=== PATIENT | male | born 1965 | race Caucasian/White ===

== ENCOUNTER 2024-02-01 09:54 | Outpatient (OUT) | payer BC, SELFPAY ==
--- NOTE | 2024-02-01 10:05 | XR_ITS ---
[address] [address] Patient Name: OPHELIA PARKS MRN: [id number] date: 1965 Sex: M Assigned Patient Location: [facility] Current Patient Location: Accession/Order Number: [id number] Exam Date: 02/01/2024 10:25 Report Date: 02/02/2024 12:56 At the request of: JILLIAN RODRIGUES Procedure: XR knee BAM 3V EXAMINATION: XR knee BAM 3V HISTORY: Osteoarthritis Of Knee M17.9 COMPARISON: No relevant comparison available. FINDINGS: RIGHT FINDINGS: BONES: Small periarticular degenerative osteophytes without significant joint space narrowing involving all 3 compartments. SOFT TISSUES: No visible soft tissue swelling. OTHER: Negative. LEFT FINDINGS: BONES: Small periarticular degenerative osteophytes without significant joint space narrowing involving all 3 compartments. SOFT TISSUES: No visible soft tissue swelling. OTHER: Negative. XR/XR knee BAM 3V IMPRESSION: RIGHT CONCLUSION: Mild degenerative joint disease. No acute abnormality. LEFT CONCLUSION: Mild degenerative joint disease. No acute abnormality. Electronically authenticated by: PAPI CHAPMAN Date: 02/02/2024 12:56
== END 2024-02-01 09:55 | disposition home or self-care (01) ==
PROVIDERS: PCP Family Medicine; Visit Provider Family Medicine
DX: M17.0 Bilateral primary osteoarthritis of knee (principal)
CPT/HCPCS: 73562

== ENCOUNTER 2024-06-29 09:18 | Outpatient (OUT) | payer BC, SELFPAY ==
--- OUTSIDE RECORDS SUMMARY | 2024-06-29 09:43 | XMS_ITS | CCD ---
Author Organization [facility] Care Team Providers Care Wicker Molded Candles Name Role Phone RAVI Eastman, DR WALSH Admitting Unavailable RAVI Eastman, DR WALSH Attending Unavailable RAVI Eastman, DR WALSH Primary Care Unavailable RAVI Eastman, DR WALSH Consulting Unavailable PAPI RAE Attending Unavailable PAPI RAE Referring Unavailable PAPI RAE Attending Unavailable Problems Problem Classification Problem Date Documented Da te Episodic/Chronic Other screening for suspected conditions (not mental disorders or infectious disease) (1 source) Encounter for screening for malignant neoplasm of prostate; Translations: [ENC SCREEN MALIG NEOPLASM PROSTATE] Onset: 11-21-2022 Episodic Results Test Name Value Interpretation Reference Range Facil ity CBC AUTO DIFFon 11-18-2022 BASO # 0.1 103/ul Normal 0.0-0.1 [facility] Comment on above: Performed By: #### C BC #### [facility] [address] [place] [address] Dr. Jimi Bah Basophils/100 WBC (Bld) 0.8 % Normal 0.2-2.0 [facility] Comment on above: Performed By: #### C BC #### [facility] [address] [address] [address] Jimi Bah EO # 0.4 103/ul Normal 0.0-0.7 [facility] Comment on above: Performed By: #### C BC #### [facility] [address] [address] [address] Jimi Bah Eosinophils/100 WBC (Bld) 6.4 % Normal 0.9-7.0 [facility] Comment on above: Performed By: #### C BC #### [facility] [address] [address] [address] Jimi Bah Erythrocyte distribution width (RBC) [Ratio] 12.5 % Normal 11.0-15.0 [facility] Comment on above: Performed By: #### C BC #### [facility] [address] [place] [address] Dr. Jimi Bah Hematocrit (Bld) [Volume fraction] 43.0 % Normal 42.0-54.0 [facility] Comment on above: Performed By: #### C BC #### [facility] [address] [place] [address] Dr. Jimi Bah Hemoglobin (Bld) [Mass/Vol] 14.7 g/dL Normal 14.0-18.0 [facility] Comment on above: Performed By: #### C BC #### [facility] [address] [place] [address] Dr. Jimi Bah IG # 0.03 10e3/ul Normal 0.00-0.03 [facility] Comment on above: Performed By: #### C BC #### [facility] [address] [place] [address] Dr. Jimi Bah IG % 0.5 % Normal 0.0-0.5 [facility] Comment on above: Performed By: #### C BC #### [facility] [address] [place] [address] Dr. Jimi Bah LYMPH # 1.8 103/ul Normal 1.2-3.8 [facility] Comment on above: Performed By: #### C BC #### [facility] [address] [place] [address] Dr. Jimi Bah Lymphocytes/100 WBC (Bld) 30.0 % Normal 20.5-60.0 [facility] Comment on above: Performed By: #### C BC #### [facility] [address] [place] [address] Dr. Jimi Bah MANUAL DIFF REQ NO Normal [facility] Comment on above: Performed By: #### C BC #### [facility] [address] [place] [address] Dr. Jimi Bah MCH (RBC) [Entitic mass] 30.1 pg Normal 25.9-34.0 [facility] Comment on above: Performed By: #### C BC #### [facility] [address] [place] [address] Dr. Jimi Bah MCHC (RBC) [Mass/Vol] 34.2 g/dL Normal 29.9-35.2 [facility] Comment on above: Performed By: #### C BC #### [facility] [address] [place] [address] Dr. Jimi Bah MCV (RBC) [Entitic vol] 88.1 fL Normal 80.0-94.0 [facility] Comment on above: Performed By: #### C BC #### [facility] [address] [place] [address] Dr. Jimi Bah MONO # 0.6 103/ul Normal 0.3-0.8 [facility] Comment on above: Performed By: #### C BC #### [facility] [address] [place] [address] Dr. Jimi Bah Monocytes/100 WBC (Bld) 10.2 % Normal 1.7-12.0 [facility] Comment on above: Performed By: #### C BC #### [facility] [address] [place] [address] Dr. Jimi Bah NEUT # 3.1 103/ul Normal 1.4-6.5 [facility] Comment on above: Performed By: #### C BC #### [facility] [address] [place] [address] Dr. Jimi Bah Neutrophils/100 WBC (Bld) 52.1 % Normal 43.0-75.0 [facility] Comment on above: Performed By: #### C BC #### [facility] [address] [place] [address] Dr. Jimi Bah Platelet mean volume (Bld) [Entitic vol] 9.6 fL Normal 9.5-13.5 [facility] Comment on above: Performed By: #### C BC #### [facility] [address] [place] [address] Dr. Jimi Bah PLT 268 103/ul Normal 150-450 [facility] Comment on above: Performed By: #### C BC #### [facility] [address] [address] [address] Jimi Bah RBC 4.88 106/ul Normal 4.70-6.10 [facility] Comment on above: Performed By: #### C BC #### [facility] [address] [address] [address] Jimi Bah WBC 6.0 103/ul Normal 4.0-11.0 [facility] Comment on above: Performed By: #### C BC #### [facility] [address] [place] [address] Dr. Jimi Bah GLYCOHEMOGLOBIN A1Con 2022 ADA RECOMMENDATION SEE BELOW Normal [facility] Comment on above: Result Comment: ADA RECOMMENDED LIMIT 4.0 - 6.0 ADA THERAPEUTIC TARGET < 7.0 ACTION SUGGESTED > 7.0 Performed By: #### A 1C #### [facility] [address] [place] [address] Dr. Jimi Bah Glucose [Mass/Vol] 114 mg/dL Normal [facility] Comment on above: Performed By: #### A 1C #### [facility] [address] [place] [address] Dr. Jimi Bah HbA1c (Bld) [Mass fraction] 5.6 % Normal 4.5-6.2 [facility] Comment on above: Performed By: #### A 1C #### [facility] [address] [place] [address] Dr. Jimi Bah LIPID PROFILEon 11-18-2022 CHOL-HDL RATIO NORM SEE BELOW Normal [facility] Comment on above: Result Comment: 3.3 - 4.4 LOW RISK 4.4 - 7.1 AVERAGE RISK 7.1 - 11.0 MODERATE RISK >11.0 HIGH RISK Performed By: #### U MILTON, CMP, LIPID #### [facility] [address] [place] [address] Dr. Jimi Bah Cholesterol [Mass/Vol] 196 mg/dL Normal <=200 [facility] Comment on above: Performed By: #### U MILTON, CMP, LIPID #### [facility] [address] [address] [address] Jimi Bah Cholesterol in HDL [Mass/Vol] 48 mg/dL Normal 40-60 [facility] Comment on above: Performed By: #### U MILTON, CMP, LIPID #### [facility] [address] [address] [address] Jimi Bah Cholesterol in LDL [Mass/Vol] 118.0 mg/dL Normal [facility] Comment on above: Performed By: #### U MILTON, CMP, LIPID #### [facility] [address] [address] [address] Jimi Bah Cholesterol.total/Cho lesterol in HDL [Mass ratio] 4.1 {ratio} Normal [facility] Comment on above: Performed By: #### U MILTON, CMP, LIPID #### [facility] [address] [address] [address] Jimi Bah HDL NORMAL > or = 60 mg/dl - LOW CARDIOVASCULAR RISK <40 mg/dl - HIGH CARDIOVASCULAR RISK Normal [facility] Comment on above: Performed By: #### U MILTON, CMP, LIPID #### [facility] [address] [address] [address] Jimi Bah LDL CALC NORMAL SEE BELOW Normal [facility] Comment on above: Result Comment: <100 mg/dl OPTIMAL 100 - 129 mg/dl NEAR OR ABOVE OPTIMAL 130 - 159 mg/dl BORDERLINE HIGH 160 - 189 mg/dl HIGH >190 mg/dl VERY HIGH Performed By: #### U MILTON, CMP, LIPID #### [facility] [address] [address] [address] Jimi Bah Triglyceride [Mass/Vol] 150 mg/dL Normal <=150 [facility] Comment on above: Performed By: #### U MILTON, CMP, LIPID #### [facility] [address] [address] [address] Jimi Bah VLDL CALC 30.0 mg/dL Normal [facility] Comment on above: Performed By: #### U MILTON, CMP, LIPID #### [facility] [address] [address] [address] Jimi Bah PROF 14(COMP METB)on 023 Albumin [Mass/Vol] 3.8 g/dL Normal 3.4-5.0 [facility] Comment on above: Performed By: #### U MILTON, CMP, LIPID #### [facility] [address] [address] [address] Jimi Bah Albumin/Globulin [Mass ratio] 1.3 {ratio} Normal [facility] Comment on above: Performed By: #### U MILTON, CMP, LIPID #### [facility] [address] [address] [address] Jimi Bah ALP [Catalytic activity/Vol] 62 U/L Normal 46-116 [facility] Comment on above: Performed By: #### U MILTON, CMP, LIPID #### [facility] [address] [address] [address] Jimi Bah ALT [Catalytic activity/Vol] 44 U/L Normal 16-63 [facility] Comment on above: Performed By: #### U MILTON, CMP, LIPID #### [facility] [address] [address] [address] Jimi Bah Anion gap [Moles/Vol] 11.9 mmol/L Normal [facility] Comment on above: Performed By: #### U MILTON, CMP, LIPID #### [facility] [address] [address] [address] Jimi Bah AST [Catalytic activity/Vol] 23 U/L Normal 15-37 [facility] Comment on above: Performed By: #### U MILTON, CMP, LIPID #### [facility] [address] [address] [address] Jimi Bah Bilirubin [Mass/Vol] 0.5 mg/dL Normal 0.2-1.0 [facility] Comment on above: Performed By: #### U MILTON, CMP, LIPID #### [facility] [address] [address] [address] Jimi Bah Calcium [Mass/Vol] 8.7 mg/dL Normal 8.5-10.1 [facility] Comment on above: Performed By: #### U MILTON, CMP, LIPID #### [facility] [address] [address] [address] Jimi Bah Chloride [Moles/Vol] 104 mmol/L Normal 98-107 [facility] Comment on above: Performed By: #### U MILTON, CMP, LIPID #### [facility] [address] [address] [address] Jimi Bah CO2 [Moles/Vol] 26.0 mmol/L Normal 21.0-32.0 [facility] Comment on above: Performed By: #### U MILTON, CMP, LIPID #### [facility] [address] [address] [address] Jimi Bah Creatinine [Mass/Vol] 0.99 mg/dL Normal 0.70-1.30 [facility] Comment on above: Performed By: #### U MILTON, CMP, LIPID #### [facility] [address] [address] [address] Jimi Bha EGFR-AF SOUTH [place]FR[place] >60 Normal >=60 [facility] Comment on above: Performed By: #### U MILTON, CMP, LIPID #### [facility] [address] [address] [address] Jimi Bah EGFR-NON AF [place] >60 Normal >=60 [facility] Comment on above: Performed By: #### U MILTON, CMP, LIPID #### [facility] [address] [address] [address] Jimi Bah Globulin (S) [Mass/Vol] 3.0 g/dL Normal [facility] Comment on above: Performed By: #### U MILTON, CMP, LIPID #### [facility] [address] [address] [address] Jimi Bah Glucose [Mass/Vol] 112 mg/dL Critically high 74-[address] [facility] Comment on above: Performed By: #### U MILTON, CMP, LIPID #### [facility] [address] [address] [address] Jimi Bah Potassium [Moles/Vol] 3.9 mmol/L Normal 3.5-5.1 [facility] Comment on above: Performed By: #### U MILTON, CMP, LIPID #### [facility] [address] [address] [address] Jimi Bah Protein [Mass/Vol] 6.8 g/dL Normal 6.4-8.[address] [facility] Comment on above: Performed By: #### U MILTON, CMP, LIPID #### [facility] [address] [address] [address] Jimi Bah Sodium [Moles/Vol] 138 mmol/L Normal 136-[address] [facility] Comment on above: Performed By: #### U MILTON, CMP, LIPID #### [facility] [address] [address] [address] Jimi Bah Urea nitrogen [Mass/Vol] 23.0 mg/dL Critically high 7.0-18.0 [facility] Comment on above: Performed By: #### U MILTON, CMP, LIPID #### [facility] [address] [address] [address] Jimi Bah Urea nitrogen/Creatinine [Mass ratio] 23.2 mg/mg Normal [facility] Comment on above: Performed By: #### U MILTON, CMP, LIPID #### [facility] [address] [address] [address] Jimi Bah URIC ACID SERUMon 11-18-2022 Urate [Mass/Vol] 6.8 mg/dL Normal 3.5-7.2 [facility] Comment on above: Performed By: #### U MILTON, CMP, LIPID #### [facility] [address] [address] [address] Jimi Bah Encounters Encounter Date Encounter Type Care Provider Facility Start: 05-04-2024 End: 05-04-2024 ambulatory PAPI RAE Not Available Start: 04-06-2024 End: 04-06-2024 ambulatory PAPI RAE Not Available Start: 11-21-2022 Encounter for genera l adult medical examination without abnormal findings DR JILLIAN RODRIGUES . [facility] Start: 11-18-2022 End: 11-19-[address] JILLIAN RODRIGUES . Facility: Start: 11-18-2022 End: 11-19-2022 Encounter for general adult medical examination without abnormal findings DR JILLIAN RODRIGUES . Facility:[facility] Procedures Date Procedure Procedure Detail Performing Clinician Start: 11-18-[address] ABRAM RODRIGUES . Comment on above: Performed By: #### P [facility] #### [facility] [address], [place] [address] Dr. Jimi Bah Payers Date Payer Category Payer Unknown [id number] [id number] [id number] 1965 Unknown [id number] [id number] [id number] 1965 Unknown [id number] 2.16.84 [id number] 1965 Unknown [id number] [id number] 1957 Unknown [id number] Summary Purpose Family History No Family History Records FoundNo Family History Records Found Advance Directives No Advanced Directives Records FoundNo Advanced Directives Records Found Additional Source Comments (unrecognized sect ion and content) No Status Records FoundNo Status Records Found INFORMATION SOURCE (unrecogn ized section and content) DATE CREATED AUTHOR 11/22/2022 [facility] DATE CREATED AUTHOR AUTHOR'S SHRUTHI CLEMENTS 05/06/2024 [facility] EPIC FOR RECORDS PERTAINING TO PATIENTS WHO ARE OR HAVE BEEN ENROLLED IN A CHEMICAL DEPENDENCY/SUBSTANCEABUSE PROGRAM, SOME INFORMATION MAY BE OMITTED. This clinical summary was aggregated from multiple sources. Caution should be exercised in using it in the provision of clinical care. This summary normalizes information from multiple sources, and as a consequence, information in this document may materially change the coding, format and clinical context of patient data. In addition, data may be omitted in some cases. CLINICAL DECISIONS SHOULD BE BASED ON THE PRIMARY CLINICAL RECORDS. [employer] [facility]. provides no warranty or guarantee of the accuracy or completeness of information in this document.
[2024-06-29 09:45] LABS: Basophils Absolute Auto 0.1 10^3/uL (0.0-0.1); Basophils Percent Auto 1.2 % (0.2-2.0); Eosinophils Absolute Auto 0.5 10^3/uL (0.0-0.7); Eosinophils Percent Auto 6.4 % (0.9-7.0); Hematocrit 46.8 % (42.0-54.0); Hemoglobin 15.6 g/dL (14.0-18.0); Immature Granulocytes Abs Auto 0.05 10^3/uL (0.00-0.03); Immature Granulocytes Pct Auto 0.7 % (0.0-0.5); Lymphocytes Absolute Auto 1.4 10^3/uL (1.2-3.8); Lymphocytes Percent Auto 18.5 % (20.5-60.0); Mean Corpuscular HGB Conc 33.3 g/dL (29.9-35.2); Mean Corpuscular Hemoglobin 30.8 pg (25.9-34.0); Mean Corpuscular Volume 92.3 fL (80.0-94.0); Mean Platelet Volume 9.8 fL (9.5-13.5); Monocytes Absolute Auto 0.7 10^3/uL (0.3-0.8); Monocytes Percent Auto 9.3 % (1.7-12.0); Neutrophils Absolute Auto 4.7 10^3/uL (1.4-6.5); Neutrophils Percent Auto 63.9 % (43.0-75.0); Platelet Count 281 10^3/uL (150-450); Red Blood Count 5.07 10^6/uL (4.70-6.10); Red Cell Distribution Width 12.5 % (11.0-15.0); White Blood Count 7.3 10^3/uL (4.0-11.0)
[2024-06-29 10:39] LABS: Free T4 0.92 ng/dL (0.76-1.46)
[2024-06-29 11:03] LABS: Alanine Aminotransferase 66 U/L (16-63); Albumin Level 3.6 g/dL (3.4-5.0); Alkaline Phosphatase 59 U/L (46-116); Anion Gap 13.8; Aspartate Amino Transferase 27 U/L (15-37); BUN Creatinine Ratio 13.7; Bilirubin Total 0.6 mg/dL (0.2-1.0); Calcium 8.9 mg/dL (8.5-10.1); Carbon Dioxide 27.4 mmol/L (21.0-32.0); Chloride 102 mmol/L (98-107); Chol HDL Ratio 3.6; Cholesterol 189 mg/dL (<=200); Estimated GFR (African America >60 (>=60 mL/min/1.73m^2); Estimated GFR (Non-African Ame >60 (>=60 mL/min/1.73m^2); Free T3 2.96 pg/mL (2.18-3.98); Globulin 3.5 g/dL; Glucose 110 mg/dL (74-106); HDL Cholesterol 52 mg/dL (40-60); LDL Cholesterol Calculated 116.8 mg/dL; Potassium 4.2 mmol/L (3.5-5.1); Sodium 139 mmol/L (136-145); Thyroid Stimulating Hormone 0.611 uIU/mL (0.358-3.740); Total Protein 7.1 g/dL (6.4-8.2); Triglycerides 101 mg/dL (<=150); VLDL CHOLESTEROL 20.2 mg/dL
[2024-06-29 11:42] LABS: Estimated Average Glucose 114 mg/dL; Glycohemoglobin A1C 5.6 % (4.5-6.2)
[2024-06-30 10:10] LABS: PSA, Free 0.25 ng/mL; Prostate Specific Ag 1.2 ng/mL (0.0-4.0)
== END 2024-06-29 09:19 | disposition home or self-care (01) ==
LOC: LAB 09:21
PROVIDERS: PCP Family Medicine; Visit Provider Family Medicine
DX: Z00.00 Encounter for general adult medical examination without abnormal findings (principal)
CPT/HCPCS: 36415; 80053; 80061; 83036; 84153; 84154; 84439; 84443; 84481; 85025

== ENCOUNTER 2025-03-16 09:44 | Outpatient (OUT) | payer BC, SELFPAY ==
--- OUTSIDE RECORDS SUMMARY | 2025-03-16 09:55 | XMS_ITS | CCD ---
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 Name Role Phone DR JILLIAN JUNE Admitting Liberty Eastman, DR WALSH Attending Unavailable DR JILLIAN JUNE Primary Care Unavailable DR JILLIAN JUNE Consulting Unavailable ARMOND RAE Attending ARMOND Meier Referring Unavailable ARMOND RAE Attending Jillian Foote MD Primary Care Provider [phone] Medications Current Medications Medication Drug Class(es) Dates Sig (Normalized) Sig (Original) lisinopril 40 mg oral tablet (3 sources) Angiotensin Converting Enzyme Inhibitor take 1 tablet by mouth once daily lisinopril 40 MG tablet Take 40 mg by mouth Daily Active meloxicam 15 mg oral tablet (2 sources) Nonsteroidal Anti-inflammatory Drug Start: 05-04-2024 End: 07-03-2024 take 1 tablet by mouth in the morning as needed, then take 1 tablet by mouth once daily at mealtime as needed meloxicam (Mobic) 15 MG tablet Indications: Peroneal tendonitis, right , Calcific tendonitis of foot, right , Peroneal tendonitis, left , Pain in right foot , Pain in left foot Take 1 tablet (15 mg) by mouth in the morning. Take with meals. 1 tablet once daily with food as needed for comfort. 30 tablet 1 05/04/2024 07/03/2024 Active omeprazole 40 mg delayed release oral capsule (3 sources) Proton Pump Inhibitor omeprazole (PriLOSEC) [address] capsule Take 40 mg by mouth Active predniSONE 10 mg oral tablet (3 sources) Start: 04-06-2024 predniSONE (Deltasone) 10 MG tablet Indications: Peroneal tendonitis, right , Calcific tendonitis of foot, right , Peroneal tendonitis, left , Pain in right foot , Pain in left foot 1 tablet twice daily x 7 days; followed by 1 tablet daily as directed until complete 21 tablet 04/06/2024 Active simvastatin 80 mg oral tablet (3 sources) HMG-CoA Reductase Inhibitor Start: 03-27-2024 take 1 tablet by mouth in the evening simvastatin (Zocor) 80 MG tablet Take 80 mg by mouth in the evening 03/27/2024 Active Problems Active Problems Problem Classification Problem Date Documented Da te Episodic/Chronic Other screening for suspected conditions (not mental disorders or infectious disease) (1 source) Encounter for screening for malignant neoplasm of prostate; Translations: [ENC SCREEN MALIG NEOPLASM PROSTATE] Onset: 11-21-2022 Episodic Past or Other Problems Problem Classification Problem Date Documented Da te Episodic/Chronic Other connective tissue disease (2 sources) Peroneal tendinitis of right lower limb; Translations: [Peroneal tendinitis, right leg] 05-04-2024 Episodic Other connective tissue disease (2 sources) Calcific tendinitis of right foot; Translations: [Calcific tendinitis, right ankle and foot] 05-04-2024 Episodic Other connective tissue disease (2 sources) Peroneal tendinitis of left lower limb; Translations: [Peroneal tendinitis, left leg] 05-04-2024 Episodic Other connective tissue disease (2 sources) Pain in right foot; Translations: [Pain in right foot] 05-04-2024 Episodic Other connective tissue disease (2 sources) Pain in left foot; Translations: [Pain in left foot] 05-04-2024 Episodic Results Test Name Value Interpretation Reference Range Facil ity CBC AUTO DIFFon 11-18-2022 BASO # 0.1 103/ul Normal 0.0-0.1 [facility] Comment on above: Performed By: #### C BC #### [facility] [address] [address] [address] Jimi Bah Basophils/100 WBC (Bld) 0.8 % Normal 0.2-2.0 [facility] Comment on above: Performed By: #### C BC #### [facility] [address] [address] [address] Jimi Bah EO # 0.4 103/ul Normal 0.0-0.7 [facility] Comment on above: Performed By: #### C BC #### [facility] [address] [place] [address] Dr. Jimi Bah Eosinophils/100 WBC (Bld) 6.4 % Normal 0.9-7.0 [facility] Comment on above: Performed By: #### C BC #### [facility] [address] [place] [address] Dr. Jimi Bah Erythrocyte distribution width (RBC) [Ratio] 12.5 % Normal 11.0-15.0 [facility] Comment on above: Performed By: #### C BC #### [facility] [address] [place] [address] Dr. Jimi Bah Hematocrit (Bld) [Volume fraction] 43.0 % Normal 42.0-54.0 [facility] Comment on above: Performed By: #### C BC #### [facility] [address] [place] [address] Dr. Jimi Bah Hemoglobin (Bld) [Mass/Vol] 14.7 g/dL Normal 14.0-18.0 [facility] Comment on above: Performed By: #### C BC #### [facility] [address] [place] [address] Dr. Jimi Bah IG # 0.03 10e3/ul Normal 0.00-0.03 [facility] Comment on above: Performed By: #### C BC #### [facility] [address] [place] [address] Dr. Jimi Bah IG % 0.5 % Normal 0.0-0.5 [facility] Comment on above: Performed By: #### C BC #### [facility] [address] [place] [address] Dr. Jimi aBh LYMPH # 1.8 103/ul Normal 1.2-3.8 [facility] Comment on above: Performed By: #### C BC #### [facility] [address] [place] [address] Dr. Jimi Bah Lymphocytes/100 WBC (Bld) 30.0 % Normal 20.5-60.0 [facility] Comment on above: Performed By: #### C BC #### [facility] [address] [place] [address] Dr. Jimi Bah MANUAL DIFF REQ NO Normal [facility] Comment on above: Performed By: #### C BC #### [facility] [address] [place] [address] Dr. Jimi Bah MCH (RBC) [Entitic mass] 30.1 pg Normal 25.9-34.0 [facility] Comment on above: Performed By: #### C BC #### [facility] [address] [place] [address] Dr. Jimi Bah MCHC (RBC) [Mass/Vol] 34.2 g/dL Normal 29.9-35.2 [facility] Comment on above: Performed By: #### C BC #### [facility] [address] [place] [address] Dr. Jimi Bah MCV (RBC) [Entitic vol] 88.1 fL Normal 80.0-94.0 [facility] Comment on above: Performed By: #### C BC #### [facility] [address] [place] [address] Dr. Jimi Bah MONO # 0.6 103/ul Normal 0.3-0.8 [facility] Comment on above: Performed By: #### C BC #### [facility] [address] [place] [address] Dr. Jimi Bah Monocytes/100 WBC (Bld) 10.2 % Normal 1.7-12.0 [facility] Comment on above: Performed By: #### C BC #### [facility] [address] [place] [address] Dr. Jimi Bah NEUT # 3.1 103/ul Normal 1.4-6.5 [facility] Comment on above: Performed By: #### C BC #### [facility] [address] [place] [address] Dr. Jimi Bah Neutrophils/100 WBC (Bld) 52.1 % Normal 43.0-75.0 [facility] Comment on above: Performed By: #### C BC #### [facility] [address] [place] [address] Dr. Jimi Bah Platelet mean volume (Bld) [Entitic vol] 9.6 fL Normal 9.5-13.5 [facility] Comment on above: Performed By: #### C BC #### [facility] [address] [place] [address] Dr. Jimi Bah PLT 268 103/ul Normal 150-450 [facility] Comment on above: Performed By: #### C BC #### [facility] [address] [address] [address] Jimi Bah RBC 4.88 106/ul Normal 4.70-6.10 [facility] Comment on above: Performed By: #### C BC #### [facility] [address] [place] [address] Dr. Jimi Bah WBC 6.0 103/ul Normal 4.0-11.0 [facility] Comment on above: Performed By: #### C BC #### [facility] [address] [place] [address] Dr. Jimi Bah GLYCOHEMOGLOBIN A1Con 2022 ADA RECOMMENDATION SEE BELOW Normal [facility] Comment on above: Result Comment: ADA RECOMMENDED LIMIT 4.0 - 6.0 ADA THERAPEUTIC TARGET < 7.0 ACTION SUGGESTED > 7.0 Performed By: #### A 1C #### [facility] [address] [place] [address] Dr. Jimi aBh Glucose [Mass/Vol] 114 mg/dL Normal [facility] Comment on above: Performed By: #### A 1C #### [facility] [address] [place] [address] Dr. Jimi Bah HbA1c (Bld) [Mass fraction] 5.6 % Normal 4.5-6.2 [facility] Comment on above: Performed By: #### A 1C #### [facility] [address] [place] [address] Dr. Jiim Bah LIPID PROFILEon 11-18-2022 CHOL-HDL RATIO NORM SEE BELOW Normal [facility] Comment on above: Result Comment: 3.3 - 4.4 LOW RISK 4.4 - 7.1 AVERAGE RISK 7.1 - 11.0 MODERATE RISK >11.0 HIGH RISK Performed By: #### U MILTON, CMP, LIPID #### [facility] [address] [address] [address] Jimi Bah Cholesterol [Mass/Vol] 196 mg/dL Normal <=200 [facility] Comment on above: Performed By: #### U MILTON, CMP, LIPID #### [facility] [address] [address] [address] Jimi Bah Cholesterol in HDL [Mass/Vol] 48 mg/dL Normal 40-60 [facility] Comment on above: Performed By: #### U MILTON, CMP, LIPID #### [facility] [address] [address] [address] Jimi Bah Cholesterol in LDL [Mass/Vol] 118.0 mg/dL Normal [facility] Comment on above: Performed By: #### U MILTON, CMP, LIPID #### [facility] [address] [address] [address] Jimi Bah Cholesterol.total/Cho lesterol in HDL [Mass ratio] 4.1 {ratio} Normal [facility] Comment on above: Performed By: #### U MILTON, CMP, LIPID #### [facility] [address] [address] [address] Jimi aBh HDL NORMAL > or = 60 mg/dl - LOW CARDIOVASCULAR RISK <40 mg/dl - HIGH CARDIOVASCULAR RISK Normal [facility] Comment on above: Performed By: #### U MILTON, CMP, LIPID #### [facility] [address] [address] [address] Jimi Bah LDL CALC NORMAL SEE BELOW Normal [facility] Comment on above: Result Comment: <100 mg/dl OPTIMAL 100 - 129 mg/dl NEAR OR ABOVE OPTIMAL 130 - 159 mg/dl BORDERLINE HIGH 160 - 189 mg/dl HIGH >190 mg/dl VERY HIGH Performed By: #### U MILTON, CMP, LIPID #### [facility] [address] [address] [address] Jimi Bah Triglyceride [Mass/Vol] 150 mg/dL Normal <=150 [facility] Comment on above: Performed By: #### U MILTON, CMP, LIPID #### [facility] [address] [address] [address] Jimi Bah VLDL CALC 30.0 mg/dL Normal [facility] Comment on above: Performed By: #### U MILTON, CMP, LIPID #### [facility] [address] [address] [address] Jimi Bah PROF 14(COMP METB)on 023 Albumin [Mass/Vol] 3.8 g/dL Normal 3.4-5.0 [facility] Comment on above: Performed By: #### U MILTON, CMP, LIPID #### [facility] [address] [address] [address] Jimi Bah Albumin/Globulin [Mass ratio] 1.3 {ratio} Normal [facility] Comment on above: Performed By: #### U MILTON, CMP, LIPID #### [facility] [address] [address] [address] Jimi Bah ALP [Catalytic activity/Vol] 62 U/L Normal 46-116 [facility] Comment on above: Performed By: #### U MILTON, CMP, LIPID #### [facility] [address] [address] [address] Jimi Bah ALT [Catalytic activity/Vol] 44 U/L Normal 16-63 [facility] Comment on above: Performed By: #### U MILTON, CMP, LIPID #### [facility] [address] [address] [address] Jimi Bah Anion gap [Moles/Vol] 11.9 mmol/L Normal [facility] Comment on above: Performed By: #### U MILTON, CMP, LIPID #### [facility] [address] [address] [address] Jimi Bah AST [Catalytic activity/Vol] 23 U/L Normal 15-37 [facility] Comment on above: Performed By: #### U MILTON, CMP, LIPID #### [facility] [address] [address] [address] Jimi Bah Bilirubin [Mass/Vol] 0.5 mg/dL Normal 0.2-1.0 [facility] Comment on above: Performed By: #### U MILTON, CMP, LIPID #### [facility] [address] [address] [address] Jimi Bah Calcium [Mass/Vol] 8.7 mg/dL Normal 8.5-10.1 [facility] Comment on above: Performed By: #### U MILTON, CMP, LIPID #### [facility] [address] [address] [address] Jimi Bah Chloride [Moles/Vol] 104 mmol/L Normal 98-107 [facility] Comment on above: Performed By: #### U MILTON, CMP, LIPID #### [facility] [address] [address] [address] Jimi Bah CO2 [Moles/Vol] 26.0 mmol/L Normal 21.0-32.0 [facility] Comment on above: Performed By: #### U MILTON, CMP, LIPID #### [facility] [address] [address] [address] Jimi Bah Creatinine [Mass/Vol] 0.99 mg/dL Normal 0.70-1.30 [facility] Comment on above: Performed By: #### U MILTON, CMP, LIPID #### [facility] [address] [address] [address] Jimi Bah EGFR-AF PORTUGUESE >60 Normal >=60 [facility] Comment on above: Performed By: #### U MILTON, CMP, LIPID #### [facility] [address] [address] [address] Jimi Bah EGFR-NON AF PORTUGUESE >60 Normal >=60 [facility] Comment on above: Performed By: #### U MILTON, CMP, LIPID #### [facility] [address] [address] [address] Jimi Bah Globulin (S) [Mass/Vol] 3.0 g/dL Normal [facility] Comment on above: Performed By: #### U MILTON, CMP, LIPID #### [facility] [address] [address] [address] Jimi Bah Glucose [Mass/Vol] 112 mg/dL Critically high 74-106 [facility] Comment on above: Performed By: #### U MILTON, CMP, LIPID #### [facility] [address] [address] [address] Jimi Bah Potassium [Moles/Vol] 3.9 mmol/L Normal 3.5-5.1 [facility] Comment on above: Performed By: #### U MILTON, CMP, LIPID #### [facility] [address] [place] [address] Dr. Jimi Bah Protein [Mass/Vol] 6.8 g/dL Normal 6.4-8.2 [facility] Comment on above: Performed By: #### U MILTON, CMP, LIPID #### [facility] [address] [place] [address] Dr. Jimi Bah Sodium [Moles/Vol] 138 mmol/L Normal 136-145 [facility] Comment on above: Performed By: #### U MILTON, CMP, LIPID #### [facility] [address] [place] [address] Dr. Jimi Bah Urea nitrogen [Mass/Vol] 23.0 mg/dL Critically high 7.0-18.0 [facility] Comment on above: Performed By: #### U MILTON, CMP, LIPID #### [facility] [address] [place] [address] Dr. Jimi Bah Urea nitrogen/Creatinine [Mass ratio] 23.2 mg/mg Normal [facility] Comment on above: Performed By: #### U MILTON, CMP, LIPID #### [facility] [address] [place] [address] Dr. Jimi Bah URIC ACID SERUMon 11-18-2022 Urate [Mass/Vol] 6.8 mg/dL Normal 3.5-7.2 [facility] Comment on above: Performed By: #### U MILTON, CMP, LIPID #### [facility] [address] [place] [address] Dr. Jimi Bah Vital Signs Date Time Vital Sign Value Performing Clinician Faci lity 05-04-2024 10:34-0400 Body height 180.3 cm Armond Rae DPM Work Phone: [facility] 05-04-2024 10:34-2812 Body mass index (BMI) [Ratio] 25.24 kg/m2 Armond Rae DPM Work Phone: [facility] 05-04-2024 10:34-3996 Body weight 82.1 kg Armond Rae DPM Work Phone: [facility] Encounters Encounter Date Encounter Type Care Provider Facility Start: 05-04-2024 End: 05-04-2024 Bamboo flowsheet Armond Rae DPM Work Phone: [facility] Start: 05-04-2024 End: 05-04-2024 Bamboo flowsheet Armond Rae DPM Work Phone: [facility] Start: 05-04-2024 End: 05-04-2024 Office outpatient visit 25 minutes Armond Rae DPM Work Phone: [facility] Comment on above: Peroneal tendonitis, right (Primary Dx); Calcific tendonitis of foot, right; Peroneal tendonitis, left; Pain in right foot; Pain in left foot Start: 05-04-2024 End: 05-04-2024 ambulatory ARMOND RAE Not Available Start: 04-06-2024 End: 04-06-2024 ambulatory ARMOND RAE Not Available Start: 11-21-2022 Encounter for genera l adult medical examination without abnormal findings DR JILLIAN WEISS . [facility] Start: 11-18-2022 End: 11-19-[address] JILLIAN WEISS . Facility: Start: 11-18-2022 End: 11-19-2022 Encounter for general adult medical examination without abnormal findings DR JILLIAN WEISS . Facility: Procedures Date Procedure Procedure Detail Performing Clinician Start: 11-18-[address] ABRAM WEISS . Comment on above: Performed By: #### [facility] #### [facility] [address] [place] [address] Dr. Jimi Bah Plan of Treatment Date Care Activity Detail Author Start: 05-04-2024 End: 05-04-2024 Patient encounter procedure 05/04/2024 10:30 AM EDT Office Visit [facility] [address] [place] [address] Armond Rae DPM [address] [place], [place] [id number] Arrived [facility] Comment on above: Arrived Immunizations Immunization Date Immunization Notes Care Provider Fa cility 06-27-2023 influenza, injectabl e, quadrivalent, preservative free Armond Rusher DPM Work Phone: [facility] 06-01-2022 influenza virus vacc ine, unspecified formulation Armond Rusher DPM Work Phone: [facility] 05-26-2022 influenza, injectabl e, quadrivalent, preservative free Armond Rusher DPM Work Phone: [facility] 06-27-2021 influenza virus vacc ine, unspecified formulation Armond Rusher DPM Work Phone: [facility] 06-19-2021 Influenza, injectabl e, Madin Indira Canine Kidney, preservative free, quadrivalent Armond Rusher DPM Work Phone: [facility] 06-04-2020 influenza, injectabl e, quadrivalent, preservative free Armond Rusher DPM Work Phone: [facility] 06-15-2019 influenza, injectabl e, quadrivalent, preservative free Armond Rusher DPM Work Phone: [facility] 05-30-2019 influenza virus vacc ine, unspecified formulation Armond Rusher DPM Work Phone: [facility] 05-30-2018 influenza, injectabl e, quadrivalent, preservative free Armond Rusher DPM Work Phone: [facility] Payers Date Payer Category Payer Unknown BCBS BCBS [id number] 2020-Present [phone] [address] [place] [address] [id number] 1965 Unknown [id number] 1967 Unknown [id number] 1967 Unknown [id number] 1967 Unknown [id number] 1957 Unknown [id number] Social History Date Type Detail Facility Start: 04-06-2024 Tobacco smoking stat [facility] Never smoked tobacco [facility] Start: 04-06-2024 Tobacco use and exposure Smokeless t obacco non-user [facility] Start: 04-06-2024 End: 05-04-2024 Alcoholic beverage intake Current drinker of alcohol (finding) [facility] Start: 04-06-2024 End: 05-04-2024 Alcoholic beverage intake [facility] Start: 04-06-2024 End: 05-04-2024 Tobacco use panel [facility] Start: 1965 Sex assigned at Male [facility] Start: 03-30-2024 Gender identity Identifies as male gender (finding) [facility] Start: 03-30-2024 Sexual orientation Heterosexual (fin ding) [facility] History of Present illness Narrative 05-04-2024 Armond Rae DPM - 05/04/2024 10:30 AM EDT Note Date & Type Note Facility 05-04-2024 History of Presen t illness Narrative Images from the original note were not included. Subjective Patient ID: Dario Muse Jr. is a 58 y.o. male who presents for Follow-up (Established pt presents today for 3 week fuv of BL foot pain. Pt relates still having pain, maybe slightly better, still worse with walking. Continues to wear powerstep inserts. SS: 8.5-10). HPI Follow-up assessment: Insertional calcific peroneus brevis tendinopathy right; insertional peroneus brevis tendonitis left. Patient completed prednisone therapy noting no adverse effects. Reports about 50-60% maximum relief or improvement; and is generally improved since last visit. Modified Powerstep orthoses effective and comfortable. Medications Current Outpatient Medications: lisinopril 40 MG tablet, Take 40 mg by mouth Daily, Disp: , Rfl: omeprazole (PriLOSEC) [address] capsule, Take 40 mg by mouth, Disp: , Rfl: simvastatin (Zocor) 80 MG tablet, Take 80 mg by mouth in the evening, Disp: , Rfl: predniSONE (Deltasone) 10 MG tablet, 1 tablet twice daily x 7 days; followed by 1 tablet daily as directed until complete (Patient not taking: Reported on 05/04/2024), Disp: 21 tablet, Rfl: 0 Allergies Patient has no known allergies. Past Surgical History Past Surgical History: Procedure Laterality Date EYE SURGERY VASECTOMY Family History No family history on file. Objective General assessment: Alert and oriented. Pleasant disposition. Wearing Skechers slip-on shoes. Vascular: DP 2/4 bilateral. PT 2/4 bilateral. CFT brisk all digits. Gradient temperature: Warm-warm bilateral. Unremarkable for ankle edema. Neurologic: Tactile and light touch sensation intact. Dermatologic: Intact. Skin turgor is good. Web space areas are clean, dry, non-inflamed. Unremarkable for eczema or dermatitis. Orthopedic: Range of motion: Passive ankle dorsiflexion is limited, consistent with mild gastrocnemius equinus. Otherwise maintains functional ankle, subtalar and 1st MTP joint range of motion. Lesion pattern: No forefoot or digital discrete keratotic lesions are noted. Focused exam right foot and ankle: Moderate-fairly sharp residual tenderness over the styloid process/peroneus brevis tendon insertion; without swelling, erythema, warmth or ecchymosis. Fifth metatarsal shaft otherwise non-tender. Peroneal sheath non-tender without palpable defect. Peroneal function 5/5 against resistance. Cuboid groove non-tender. Focused exam left foot and ankle: Slight tenderness over the styloid process; notably less intense than the right; without swelling, warmth or discoloration. Peroneal sheath and cuboid groove non-tender. Peroneal function 5/5 against resistance. Strength testing: No focal deficits noted. Radiology: 3 views right foot: Weight-bearing: DP, oblique, lateral: 04/06/2024: Unremarkable for fracture or stress fracture changes. Unremarkable for acute osseous or joint pathology. Mild calcific deposition at the insertion of the peroneus brevis tendon. Assessment/Plan Progressively symptomatic insertional calcific peroneal brevis tendonitis right. Symptomatic insertional peroneal brevis tendonitis left Plan: Review of clinical and x-ray findings, differential diagnosis, etiology and contributing/aggravating factors, response to date, treatment strategy, rationale and objectives. Meloxicam therapy as noted. Patient advised to avoid OTC NSAIDs. Sizing and fitting of ASO gauntlet brace right ankle: Indicated to provide multi-plane stability of the right ankle, hindfoot and midfoot, specifically load reducing the peroneal tendon construct; alleviating symptomatology and improving tolerance to ADLs and physical activity. Encourage compliance with supportive footwear and modified Powerstep orthoses. Discussed use of topical agents: Salon Pas patches, Voltaren gel, Aspercreme, Biofreeze, CBD cream etc. Procedure: This note was created with the assistance of a speech recognition program. While intending to generate a timely document that accurately reflects the content of the visit, no guarantee can be provided that every grammatical or spelling mistake has been or will be identified or corrected. Thank you for your understanding. Armond Rae DPM documented in this encounter [facility] Healthcare Instructions 05-04-2024 Patient Instructions Note Date & Type Note Facility 05-04-2024 Instructions Armond Rae DPM - 05/04/2024 10:30 AM EDT Instructions as noted documented in this encounter [facility] Evaluation note Note Date & Type Note Facility Evaluation note Diagnosis Peroneal tendonitis, right- Primary Calcific tendonitis of foot, right Peroneal tendonitis, left Pain in right foot Pain in soft tissues of limb Pain in left foot Pain in soft tissues of limb documented in this encounter [facility] Summary Purpose Family History No Family History Records FoundNo Family History Records Found Advance Directives No Advanced Directives Records FoundNo Advanced Directives Records Found Additional Source Comments (unrecognized sect ion and content) No Status Records FoundNo Status Records Found INFORMATION SOURCE (unrecogn ized section and content) DATE CREATED AUTHOR 11/22/2022 [facility] DATE CREATED AUTHOR AUTHOR'S ORGANBORIS ATION 05/06/2024 [facility] EPIC Care Teams (unrecognized sec tion and content) [employer] Relationship Specialty Start Date End Date Jillian Weiss MD [address] [place] [address] PCP - General Family Medicine 04/06/24 [employer] Relationship Specialty Start Date End Date Jillian Weiss MD [address] [place] [id number] PCP - General Family Medicine 04/06/24 Reason for Visit (unrecogniz ed section and content) Reason Comments Follow-up Established pt prese nts today for 3 week fuv of BL foot pain. Pt relates still having pain, maybe slightly better, still worse with walking. Continues to wear powerstep inserts. SS: 8.5-10 FOR RECORDS PERTAINING TO PATIENTS WHO ARE [...] BE BASED ON THE PRIMARY CLINICAL RECORDS. [employer] provides no warranty or guarantee of the accuracy or completeness of information in this document.
--- NOTE | 2025-03-16 09:57 | XR_ITS ---
The [address] [address] Patient Name: OPHELIA PARKS MRN: [id number] date: 1965 Sex: M Assigned Patient Location: [facility] Current Patient Location: [facility] Accession/Order Number: [id number] Exam Date: 03/16/2025 10:47 Report Date: 03/16/2025 10:53 At the request of: JILLIAN RODRIGUES MD Procedure: XR femur RT 2V CLINICAL DATA: Chronic low back pain radiating to the right knee. Lateral thigh numbness. No injury. LUMBAR SPINE - 4 views COMPARISON: None AP, lateral and both oblique views were obtained. There is osteopenia. No acute fractures are identified. There is minimal retrolisthesis of L3 on L4. No disproportionate disc space narrowing is visualized. There are tiny endplate spurs. There is lower lumbar facet hypertrophy. The SI joints are intact. There are soft tissue calcifications at the left abdomen. It is uncertain if they are renal in origin. XR/XR knee RT 3V IMPRESSION: OSTEOPENIA AND MILD DEGENERATIVE CHANGES. RIGHT FEMUR - 2 views COMPARISON: None AP and lateral views were obtained. There is osteopenia. No acute fractures are identified. No dislocation is seen. The hip joint space is maintained. There is minimal marginal spurring at the periphery of the femoral head. No soft tissue abnormalities are identified. IMPRESSION: NO ACUTE BONY FINDINGS. RIGHT KNEE - 3 views COMPARISON: 02/02/2024 AP, lateral and internal oblique views were obtained. There is osteopenia. No acute fractures or dislocation are visualized. There is mild medial tibiofemoral joint compartment narrowing. There is marginal spurring at that site and minor at the posterior patella. A small enthesophyte is visualized at the insertion of the quadriceps tendon. There is a trace amount joint fluid. No focal soft tissue swelling is noted. IMPRESSION: OSTEOPENIA AND MILD DEGENERATIVE CHANGES. Impression dictated by: Samantha Patel M.D. 03/16/2025 10:53 AM Dictation Location: [place] [address] Electronically authenticated by: [id number] Y Date: 03/16/2025 10:53
--- NOTE | 2025-03-16 09:57 | XR_ITS ---
The [address] [address] Patient Name: OPHELIA PARKS MRN: [id number] date: 1965 Sex: M Assigned Patient Location: [facility] Current Patient Location: [facility] Accession/Order Number: [id number] Exam Date: 03/16/2025 10:47 Report Date: 03/16/2025 10:53 At the request of: JILLIAN RODRIGUES MD Procedure: XR femur RT 2V CLINICAL DATA: Chronic low back pain radiating to the right knee. Lateral thigh numbness. No injury. LUMBAR SPINE - 4 views COMPARISON: None AP, lateral and both oblique views were obtained. There is osteopenia. No acute fractures are identified. There is minimal retrolisthesis of L3 on L4. No disproportionate disc space narrowing is visualized. There are tiny endplate spurs. There is lower lumbar facet hypertrophy. The SI joints are intact. There are soft tissue calcifications at the left abdomen. It is uncertain if they are renal in origin. XR/XR femur RT 2V IMPRESSION: OSTEOPENIA AND MILD DEGENERATIVE CHANGES. RIGHT FEMUR - 2 views COMPARISON: None AP and lateral views were obtained. There is osteopenia. No acute fractures are identified. No dislocation is seen. The hip joint space is maintained. There is minimal marginal spurring at the periphery of the femoral head. No soft tissue abnormalities are identified. IMPRESSION: NO ACUTE BONY FINDINGS. RIGHT KNEE - 3 views COMPARISON: 02/02/2024 AP, lateral and internal oblique views were obtained. There is osteopenia. No acute fractures or dislocation are visualized. There is mild medial tibiofemoral joint compartment narrowing. There is marginal spurring at that site and minor at the posterior patella. A small enthesophyte is visualized at the insertion of the quadriceps tendon. There is a trace amount joint fluid. No focal soft tissue swelling is noted. IMPRESSION: OSTEOPENIA AND MILD DEGENERATIVE CHANGES. Impression dictated by: Samantha Patel M.D. 03/16/2025 10:53 AM Dictation Location: [place] [address] Electronically authenticated by: [id number] Y Date: 03/16/2025 10:53
--- NOTE | 2025-03-16 09:57 | XR_ITS ---
The [address] [address] Patient Name: OPHELIA PARKS MRN: [id number] date: 1965 Sex: M Assigned Patient Location: [facility] Current Patient Location: [facility] Accession/Order Number: [id number] Exam Date: 03/16/2025 10:47 Report Date: 03/16/2025 10:53 At the request of: JILLIAN RODRIGUES MD Procedure: XR femur RT 2V CLINICAL DATA: Chronic low back pain radiating to the right knee. Lateral thigh numbness. No injury. LUMBAR SPINE - 4 views COMPARISON: None AP, lateral and both oblique views were obtained. There is osteopenia. No acute fractures are identified. There is minimal retrolisthesis of L3 on L4. No disproportionate disc space narrowing is visualized. There are tiny endplate spurs. There is lower lumbar facet hypertrophy. The SI joints are intact. There are soft tissue calcifications at the left abdomen. It is uncertain if they are renal in origin. XR/XR lumbar spine min 4V IMPRESSION: OSTEOPENIA AND MILD DEGENERATIVE CHANGES. RIGHT FEMUR - 2 views COMPARISON: None AP and lateral views were obtained. There is osteopenia. No acute fractures are identified. No dislocation is seen. The hip joint space is maintained. There is minimal marginal spurring at the periphery of the femoral head. No soft tissue abnormalities are identified. IMPRESSION: NO ACUTE BONY FINDINGS. RIGHT KNEE - 3 views COMPARISON: 02/02/2024 AP, lateral and internal oblique views were obtained. There is osteopenia. No acute fractures or dislocation are visualized. There is mild medial tibiofemoral joint compartment narrowing. There is marginal spurring at that site and minor at the posterior patella. A small enthesophyte is visualized at the insertion of the quadriceps tendon. There is a trace amount joint fluid. No focal soft tissue swelling is noted. IMPRESSION: OSTEOPENIA AND MILD DEGENERATIVE CHANGES. Impression dictated by: Samantha Patel M.D. 03/16/2025 10:53 AM Dictation Location: [place] [address] Electronically authenticated by: [id number] Y Date: 03/16/2025 10:53
== END 2025-03-16 09:45 | disposition home or self-care (01) ==
PROVIDERS: PCP Family Medicine; Visit Provider Family Medicine
DX: M54.50 Low back pain, unspecified (principal); L25.9 Unspecified contact dermatitis, unspecified cause; M17.9 Osteoarthritis of knee, unspecified; M79.606 Pain in leg, unspecified
CPT/HCPCS: 72110; 73552; 73562